=== PATIENT | female | born 1965 | race Caucasian/White ===

== ENCOUNTER 2017-07-16 21:46 | Emergency (ER) | payer OTHER, MEDICAID ==
[~2017-07-16] VITALS: Ht 160 cm; Wt 72.6 kg
--- NOTE | 2017-07-16 21:46 | NUR ---
FRANCISCO J ARNOLD, PREBOOK. TAKEN TO CHAIR E
--- NOTE | 2017-07-16 21:48 | NUR ---
52Y/F PT. BIB PD TO ED FOR PRE-BOOK. HX. HIV, HEAD TUMORE .
[2017-07-16 22:32] VITALS: BP 126/67
[2017-07-16 23:45] VITALS: BP 140/66
--- NOTE | 2017-07-16 23:45 | NUR ---
Patient discharged with v/s stable. Written and verbal after care instructions given and explained. Patient verbalized understanding. Police with in custody. All questions addressed prior to discharge. Advised to follow up with PMD.
== END 2017-07-16 23:45 ==
LOC: MED 21:46
DX: Z02.89 Encounter for other administrative examinations (principal); Z88.0 Allergy status to penicillin; Z88.5 Allergy status to narcotic agent; Z88.8 Allergy status to other drugs, medicaments and biological substances
CPT/HCPCS: 99283